=== PATIENT | male | born 1965 | race Caucasian/White ===

== ENCOUNTER 2022-06-20 10:13 | Emergency (ER) | payer BC ==
[~2022-06-20] VITALS: Ht 175.3 cm; Wt 86.2 kg
[~2022-06-20 10:13] MED LIST: AMOX/K CLAV875 M1 PO
[2022-06-20 10:40] VITALS: BP 186/111
[2022-06-20 11:00] VITALS: BP 155/99
[2022-06-20] MEDS ORDERED: NEURONTIN300 MG PO (11:39)
[2022-06-20] MEDS ORDERED: DECADRON4 MG PO (11:39)
[2022-06-20] MEDS ORDERED: CELEBREX100 M1 PO (11:39)
[2022-06-22] MEDS ORDERED: OMEPRAZOLE20 MG PO (15:43)
== END 2022-06-20 11:56 | disposition home or self-care (01) | DRG 552 ==
LOC: ED 10:13
DX: M54.31 Sciatica, right side (principal)